=== PATIENT | female | born 1970 | race African-American/Black ===

== ENCOUNTER → 2017-09-09 | Outpatient (CLI) | payer OTHER ==
[~2017-09-09] VITALS: Ht 165.1 cm; Wt 107.5 kg
--- NOTE | ~2017-09-09 | P ---
[facility] [place] [address] PROCEDURE REPORT Name: YASMANI SINGER [facility]: [id number] Admission: 09/09/17 Attend Phys: Ovidio Espinal MD Discharge: Date of : 70 Report #: [id number] THIS REPORT FOR: //name// CC: Ovidio Talbot BRIEF HISTORY: The patient is a 46-year-old -[place] woman who recently had severe diverticulitis. She had a relapse after initial antibiotic treatment. PREOPERATIVE DIAGNOSIS: History of recurrent diverticulitis. POSTOPERATIVE DIAGNOSES: Moderately severe sigmoid diverticulosis coli without endoscopic evidence of active diverticulitis. MEDICATIONS: Deep sedation with propofol per anesthesia. SPECIMEN: None. ESTIMATED BLOOD LOSS: None. PROCEDURE: Colonoscopy to cecum and terminal ileum. FINDINGS: Prior to propofol sedation, procedure of colonoscopy discussed with the patient as well as potential risks, benefits, and complications. She indicates she understands and desires to proceed. With the patient in left lateral decubitus position, digital examination was completed, which revealed no abnormalities. Subsequently, the [employer] video colonoscope was introduced into the rectum, advanced under direct vision without difficulty. The cecum was identified by the ileocecal valve and the appendiceal orifice. I was able to visualize the distal segment of the terminal ileum, which was inspected and noted to be unremarkable. At that point, the scope was slowly withdrawn and careful circumferential views were obtained including retroflexing the scope in the ascending colon. Upon slow withdrawal of the scope, the prep was excellent. The mucosa was within normal limits, normal vascular pattern and normal light reflex. As we withdrew the scope, she was noted to have normal mucosa. No neoplastic lesions were seen on this examination. The scope was further withdrawn and when the sigmoid colon was reached, she was noted to have moderately severe diverticular disease without endoscopic evidence of diverticulitis. The scope was withdrawn in the rectum. Upon retroflexion, no abnormalities were seen. Scope was withdrawn. The patient tolerated the procedure well. CONDITION OF THE PATIENT UPON DISCHARGE: Following procedure, the patient drowsy, arousable, and conversant and will be discharged to home when fully [address] [address] PROCEDURE REPORT Name: YASMANI SINGER [facility]: [id number] Admission: 09/09/17 Attend Phys: Ovidio Espinal MD Discharge: Date of : 70 Report #: [id number] ambulatory. INSTRUCTIONS TO THE PATIENT AND FAMILY AT THE TIME OF DISCHARGE: The patient has diverticular disease without evidence of active inflammatory disease. It is possible she had a prolonged first episode with a quick relapse rather than a true second episode of diverticulitis. At this point, I would suggest a high fiber diet and fiber supplementation. For colorectal screening purposes, this exam was negative and I suggest a followup colon exam in 10 years. If she develops recurring bouts of diverticulitis, surgical intervention will be needed, but does not appear to be needed at this point in time. She should return to the care of Dr. Jesse Mckay and return to see me as needed. This is her first colonoscopy, withdrawal time from cecum was 9 minutes 14 seconds. <ELECTRONICALLY SIGNED> By: Ovidio Espinal MD 09/09/17 [id number] Ovidio Espinal MD /nt
== END | disposition home or self-care (01) ==
LOC: GI 07:17
DX: K57.30 Diverticulosis of large intestine without perforation or abscess without bleeding (principal); D64.9 Anemia, unspecified; Z88.6 Allergy status to analgesic agent